=== PATIENT | female | born 1955 | race Caucasian/White ===

== ENCOUNTER 2017-01-29 08:21 | Observation (INO) | payer BC, OTHER ==
[~2017-01-29] VITALS: Ht 170.2 cm; Wt 59.2 kg
--- NOTE | ~2017-01-29 | EKG ---
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 : 1955 Requested By: Antelmo Ibarra Order Number: [id number] MD: Jose Saleem Measurements Intervals [place] Rate: 69 P: 60 SC: 130 QRS: 61 QRSD: 97 T: 46 QT: 406 QTc: 435 Interpretive Statements Sinus rhythm RSR' in V1 or V2, right VCD Compared to ECG 01/29/2017 11:50:09 No significant change was found Electronically Signed On 01-30-2017 9:08:46 PROCESS OPERATOR by Jose Saleem [email or web address] <ELECTRONICALLY SIGNED> By: Jose Saleem MD, [facility] 01/30/1708 0 0 Jose Saleem MD, [facility] /EPI
--- NOTE | ~2017-01-29 | CATHLAB ---
[facility] [address] [place] [address] INVASIVE PROCEDURE REPORT Name: PATSY RICHARDSON Room #: 201-P ADM IN M.R.#: [id number] Admission: 01/29/17 Attend Phys: Antelmo Ibarra MD Discharge: Date of : 59 Date of Service: 01/29/170 Report #: [id number] THIS REPORT FOR: //name// APPROVED REPORT Patient Details Patient Status: Out-Patient Room #: The patient is a 61 year-old female Event Personnel Antelmo Ibarra Ecommerce Merchandising Manager, Jannette Castro, Duong Ba RN, Ana M Muse Scrub Procedures Performed Art Access - R femoral artery* 55177 Initial Mod Sed Same Phys/QHP Gr5y 602036 18682 Mod Sed Same Phys/QHP Ea 379836 Left Heart Cath w/or w/o Coronaries 9805136 [facility] [address] [facility] w/wo Plasty Single LAD 216029 Hemostasis w/ Mynx Indication Dyspnea, Unstable angina , Positive stress test Risk Factors Family History, Hypercholesterolemia, Hypertension Procedure Narrative The patient was brought electively to the Cardiac Catheterization Laboratory and was prepped and draped in a sterile manner. The Right Groin^ was infiltrated with 1% Lidocaine subcutaneous anesthesia. A PINNACLE 4FR Sheath #[id number] sheath was inserted into the RFA^. Coronary angiography was performed using coronary diagnostic catheters. The right coronary system was accessed and visualized with a JR 4 catheter. The left coronary system was accessed and visualized with a JL 4 catheter. The left ventricle was accessed and visualized with a Pigtail catheter. Left ventricular/Aortic Valve gradient assessed via catheter pullback. Left ventriculogram was performed in 30 degree projection. Pre-demployment femoral angiogram was performed RFA. Closure device was deployed with a 6 Fr Mynx. The patient tolerated the procedure well and there were no complications associated with the procedure. There was no hematoma. Intraoperative Conscious Sedation Sedation start time: 09:37 Case end Time: 10:43 Fentanyl 50.0 mcg Versed 1.[address] [address] INVASIVE PROCEDURE REPORT Name: DEBRAPATSY CHAPA Room #: 201-P [facility] IN [facility].#: [id number] Admission: 01/29/17 Attend Phys: Antelmo Ibarra MD Discharge: Date of : 59 Date of Service: 01/29/17 1710 Report #: [id number] Fluoro Time: 18.47 minutes Dose: DAP 5674.70 cGycm2 769 mGy Contrast Type and Amount: Omnipaque 200 ml Coronary Angiography The patient's coronary anatomy is right dominant. Diagnostic Cath Left Main Large-caliber vessel, no flow limiting lesions. LAD Moderate size caliber vessel, with a discrete 80% stenosis in the mid segment. Unchanged after given intracoronary nitroglycerin. Diagonal 1 Small-caliber vessel, no flow limiting lesions. Circumflex Supplies one moderate size OM vessel. OM1 Travels down the lateral wall, giving off multiple branches. Has no flow-limiting lesions. Right Coronary Dominant vessel, mild plaquing in the proximal segment, less than 20%. R PDA Patent vessel, no flow limiting lesions. RPLV Patent vessel, no flow limiting lesions. Left Ventriculography The left ventricle is normal in size with normal contractility. The left ventricular ejection fraction is estimated to be 60-65%. Hemodynamics The aortic pressure is 100/55 mmHg with a mean of 76 mmHg. The left ventricular pressure is 102/9 mmHg with a mean of mmHg. The left ventricular end diastolic pressure is 24 mmHg. PCI Technique Lesion Anticoagulation was achieved with Angiomax. Patient was preloaded with Brillinta. Percutaneous coronary intervention was performed on the mid left anterior descending artery segment. The lesion stenosis prior to intervention was 80% with ALO 3 flow. A VISTA 6FR XB 3 #[id number] Guide Catheter was used to engage the left coronary artery ostium. A Luge Wire .014 x 182CM #[id number] Interventional Guidewire was used to cross the lesion. BALLOON DILATION A Balloon catheter Euphora RX 2.5 x 12 #[id number] was inserted and inflated up to 8.00atm for 16seconds. [address] [address] INVASIVE PROCEDURE REPORT Name: PATSY RICHARDSON Room #: 201-P [facility] IN M.R.#: [id number] Admission: 01/29/17 Attend Phys: Antelmo Ibarra MD Discharge: Date of : 59 Date of Service: 01/29/17 1710 Report #: [id number] STENT DEPLOYMENT A drug-eluting stent RESOLUTE RX 3.0 X 15 #[id number] was inserted and inflated up to 14.00atm for 21seconds. After the stent was dilated, at the proximal edge there appeared to be a dissection. This was covered with a 2.5 x 8 mm drug-eluting stent. POST STENT DEPLOYMENT BALLOON DILATION A Balloon catheter Lastlineec NC 2.75 x 13 was inserted and inflated up to 18.00atm for 15seconds. Additional Inflation: 16.00atm for 14seconds. Final angiography reveals 0 % stenosis with ALO 3 flow. STENT DEPLOYMENT A drug-eluting stent RESOLUTE RX 2.5 X 8 #[id number] was inserted and inflated up to 10.00atm for 18seconds. Additional Inflation: 16.00atm for 5seconds. There was a proximal edge dissection and this was covered with a 2.5 mm resolute stent. Conclusion 1. Successful insertion of drug-eluting stents into the severe stenosis in the mid LAD. 2. Dominant RCA with mild disease. 3. Normal LV systolic function. 4. Recommend dual antiplatelet therapy. <ELECTRONICALLY SIGNED> By: Antelmo Ibarra MD 01/29/171709 09 09 Antelmo Ibarra MD /INF
--- NOTE | ~2017-01-29 | EKG ---
[address] [address] ELECTROCARDIOGRAM REPORT Name: PATSY RICHARDSON Room #: 201-P [facility].#: [id number] Admission: 01/29/17 Attend Phys: Antelmo Ibarra MD Discharge: Date of : 59 Report #: [id number] THIS REPORT FOR: //name// [facility] Test Date: 2017-01-29 Test Time: 11:50:09 Pat Name: PATSY RICHARDSON Department: Room: 201 Gender: F Entry Examiner: Stacie AVILEZ : 1955 Requested By: Antelmo Ibarra Order Number: [id number] MD: Azam Grey Measurements Intervals [place] Rate: 67 P: 51 MA: 145 QRS: 68 QRSD: 74 T: 62 QT: 433 QTc: 457 Interpretive Statements Sinus rhythm Abnormal R-wave progression, early transition No previous ECG available for comparison Electronically Signed On 01-29-2017 21:02:58 ADMINISTRATIVE OFFICER by Azam Grey [email or web address] <ELECTRONICALLY SIGNED> By: Azam Grey MD 01/29/172101 1150 Azam Grey MD /OLIVA
--- NOTE | ~2017-01-29 | EKG ---
[address] [address] ELECTROCARDIOGRAM REPORT Name: PATSY RICHARDSON Room #: 201-P [facility].#: [id number] Admission: 01/29/17 Attend Phys: Antelmo Ibarra MD Discharge: Date of : 59 Report #: [id number] THIS REPORT FOR: //name// [facility] Test Date: 2017-01-29 Test Time: 08:55:30 Pat Name: PATSY RICHARDSON Department: Room: 201 Gender: F Cap Maker: LUCY : 1955 Requested By: Antelmo Ibarra Order Number: [id number] MD: Azam Grey Measurements Intervals [place] Rate: 70 P: 42 [place]: 127 QRS: 55 QRSD: 94 T: 41 QT: 407 QTc: 440 Interpretive Statements Sinus rhythm Probable left atrial enlargement Abnormal R-wave progression, early transition No previous ECG available for comparison Electronically Signed On 01-29-2017 21:00:20 CERTIFIED MASTER SAFECRACKER by Azam Grey [email or web address] <ELECTRONICALLY SIGNED> By: Azam Grey MD 01/29/172099 0855 Azam Grey MD /OLIVA
--- NOTE | ~2017-01-29 | D ---
[facility] [place] [address] DISCHARGE SUMMARY Name: PATSY RICHARDSON Room #: 201-P [facility] Gavino Crawford#: [id number] Admission: 01/29/17 Attend Phys: Antelmo Ibarra MD Discharge: 01/30/17 Date of : 59 Report #: [id number] THIS REPORT FOR: //name// CC: Rupert Ibarra DATE OF SERVICE: 01/30/2017 FINAL DIAGNOSES: 1. Unstable angina, status post coronary intervention. 2. Hypertension. 3. Hypercholesterolemia. HOSPITAL COURSE: Please see the original H and P for full details. The patient presented with complaints of chest pains with exertion. She did undergo a stress echocardiogram, abnormal for ECG changes and wall motion abnormalities during maximal heart rate. She presented for an elective cardiac catheterization. Please see the report for full details. There was a severe, focal stenosis in the mid LAD segment. Intracoronary nitroglycerin was given without any change in the severity. The patient underwent placement of drug-eluting stents. She has remained hemodynamically stable overnight. No further episodes of angina with ambulation. Telemetry reveals sinus rhythm, no arrhythmias noted. I had a long discussion with her regarding the importance of dual antiplatelet therapy. Otherwise, she will be discharged home today and follow up as an outpatient. FINAL DISPOSITION: Aspirin 81 mg, Brilinta 90 mg twice a day, Lipitor 40 mg daily. Pressure is on the low side. Lisinopril will be reduced in half to 10 mg daily. Continue with Toprol-XL 25 and hydrochlorothiazide will be discontinued. <ELECTRONICALLY SIGNED> By: Antelmo Ibarra MD 01/31/17 0816 0835 0937 Antelmo Ibarra MD /nt
[2017-01-29 08:54] VITALS: BP 101/63
[2017-01-29] MEDS ORDERED: AMITRIPTYLINE H10 M3 PO (09:05)
[2017-01-29] MEDS ORDERED: ASPIRIN81 M2 PO (09:06)
[2017-01-29] MEDS ORDERED: FISH OIL 1,001000 M2 PO (09:06)
[2017-01-29 09:07] LABS: HEMATOCRIT 38.3 % (37.0-47.0); MCH 29.9 pg (26.0-34.0); MCHC 34.1 g/dL (28.0-37.0); MCV 87.7 fL (80.0-100.0); RBC 4.36 mil/uL (4.20-5.00); RDW 13.2 % (10.5-14.5); WBC 6.7 thou/uL (4.0-11.0)
[2017-01-29] MEDS ORDERED: LISINOPRIL20 MG PO (09:07)
[2017-01-29] MEDS ORDERED: HYDROCHLOROTHIA25 M1 PO (09:07)
[2017-01-29] MEDS ORDERED: LOPRESSOR25 PO (09:08)
[2017-01-29] MEDS ORDERED: VITAMIN B-12500 MCG PO (09:08)
[2017-01-29] MEDS ORDERED: TOPROL XL25 MG PO (09:09)
[2017-01-29 09:14] LABS: CALCIUM 9.5 mg/dL (8.5-10.1); CREATININE 0.8 mg/dL (0.6-1.0); POTASSIUM 3.8 mmol/L (3.5-5.1)
[2017-01-29] MEDS ORDERED: PRESERVISION A1 EAC2 PO (09:15)
[2017-01-29 11:31] VITALS: BP 90/41
[2017-01-29 11:32] VITALS: BP 90/41
[2017-01-29 16:30] VITALS: BP 88/54
[2017-01-29 19:52] VITALS: BP 112/65
[2017-01-29 23:11] VITALS: BP 94/54
[2017-01-30 03:52] LABS: HEMATOCRIT 34.8 % (37.0-47.0); HEMOGLOBIN 11.6 gm/dL (12.0-15.0); MCHC 33.4 g/dL (28.0-37.0); MCV 89.7 fL (80.0-100.0); RBC 3.88 mil/uL (4.20-5.00); RDW 13.3 % (10.5-14.5); WBC 6.4 thou/uL (4.0-11.0)
[2017-01-30 03:58] VITALS: BP 96/60
[2017-01-30 04:14] LABS: CALCIUM 8.5 mg/dL (8.5-10.1); CREATININE 0.9 mg/dL (0.6-1.0); POTASSIUM 3.9 mmol/L (3.5-5.1); TROPONIN-I 0.33 ng/mL (<0.06)
[2017-01-30 07:00] VITALS: BP 96/58
[2017-01-30] MEDS ORDERED: BRILINTA90 MG PO (08:28)
[2017-01-30] MEDS ORDERED: ATORVASTATIN CA40 MG PO (08:28)
[2017-01-30 11:55] VITALS: BP 101/62
[2017-01-30 12:33] VITALS: BP 101/62
== END 2017-01-30 13:45 | disposition home or self-care (01) ==
LOC: CATH 08:21 → 2N 11:24
PROVIDERS: Internal Medicine Cardiovascular Disease
DX: I20.0 Unstable angina (principal); I10 Essential (primary) hypertension; E78.00 Pure hypercholesterolemia, unspecified

== ENCOUNTER → 2019-05-22 | Outpatient (CLI) | payer BC, OTHER ==
[~2019-05-22] MED LIST: AMITRIPTYLINE H10 M3 PO; ASPIRIN81 M2 PO; ATORVASTATIN CA40 MG PO; BRILINTA90 MG PO; FISH OIL 1,001000 M2 PO; HYDROCHLOROTHIA25 M1 PO; LISINOPRIL20 MG PO; LOPRESSOR25 PO; PRESERVISION A1 EAC2 PO; TOPROL XL25 MG PO; VITAMIN B-12500 MCG PO
== END ==
LOC: SJCVCIMAG 12:00
DX: I25.89 Other forms of chronic ischemic heart disease (principal); I25.10 Atherosclerotic heart disease of native coronary artery without angina pectoris; I10 Essential (primary) hypertension; Z79.899 Other long term (current) drug therapy; Z87.891 Personal history of nicotine dependence

== ENCOUNTER → 2020-06-03 | Outpatient (CLI) | payer BC, OTHER | LOC: RAD 13:19 | PROVIDERS: ATTEND Internal Medicine Pulmonary Disease | DX: R06.02 Shortness of breath (principal); R06.00 Dyspnea, unspecified ==

== ENCOUNTER → 2021-01-27 | Outpatient (CLI) | payer BC, OTHER | LOC: SJCVCIMAG 07:12 | PROVIDERS: ATTEND Internal Medicine Cardiovascular Disease | DX: I08.3 Combined rheumatic disorders of mitral, aortic and tricuspid valves (principal); E78.00 Pure hypercholesterolemia, unspecified; I25.10 Atherosclerotic heart disease of native coronary artery without angina pectoris; I10 Essential (primary) hypertension; R55 Syncope and collapse; Z88.8 Allergy status to other drugs, medicaments and biological substances; Z79.82 Long term (current) use of aspirin; Z79.899 Other long term (current) drug therapy; Z87.891 Personal history of nicotine dependence; Z72.89 Other problems related to lifestyle ==